=== PATIENT | female | born 1990 | race Caucasian/White ===

== ENCOUNTER 2016-11-13 16:02 | Observation (INO) | payer OTHER ==
[~2016-11-13] VITALS: Ht 162.6 cm; Wt 97.0 kg
[2016-11-13 16:04] VITALS: BP 160/91; PULSE 81; RESP 20; TEMP 98.3; O2SAT 100
[2016-11-13 17:41] LABS: AUTOMATED NEUTROPHIL # 8.9 TH/MM3 (1.8-7.7); BASOPHIL # 0.1 TH/MM3 (0-0.2); BASOPHIL % 0.7 % (0.0-2.0); EOSINOPHIL # 0.3 TH/MM3 (0-0.4); HEMATOCRIT 40.9 % (35.0-46.0); HEMO FLAGS DIFF FINAL; LYMPH % 30.1 % (9.0-44.0); LYMPHOCYTE # 4.3 TH/MM3 (1.0-4.8); MEAN CELL VOLUME 80.6 FL (80.0-100.0); MEAN CORPUSCULAR HEMOGLOBIN 27.2 PG (27.0-34.0); MEAN CORPUSCULAR HGB CONC 33.7 % (32.0-36.0); MONO % 5.6 % (0.0-8.0); NEUT % 61.6 % (16.0-70.0); PLATELET COUNT 367 TH/MM3 (150-450); RED BLOOD COUNT 5.07 MIL/MM3 (4.00-5.30); RED CELL DISTRIBUTION WIDTH 13.5 % (11.6-17.2); WHITE BLOOD COUNT 14.4 TH/MM3 (4.0-11.0)
[2016-11-13 17:49] LABS: BACTERIA, URINE RARE /hpf; BLOOD, URINE NEG (NEG); COMMENT (UR) CULT NOT INDICATED; CULTURE IF INDICATED CULT NOT INDICATED; GLUCOSE,URINE NEG (NEG); KETONE, URINE NEG (NEG); NITRITE,URINE NEG (NEG); PH, URINE 6.5 (5.0-8.5); SQUAMOUS EPITHELIAL CELL URINE <1 /hpf (0-5); URINE COLOR LIGHT-YELLOW (YELLW/STRAW)
[2016-11-13 18:05] LABS: ANION GAP 8 MEQ/L (5-15); AST (GOT) 14 U/L (15-37); BICARBONATE 22.2 MEQ/L (21.0-32.0); BLOOD UREA NITROGEN 11 MG/DL (7-18); CHLORIDE 107 MEQ/L (98-107); GLOMERULAR FILTRATION RATE 98 ML/MIN (>89); POTASSIUM 3.8 MEQ/L (3.5-5.1); SODIUM (NA) 137 MEQ/L (136-145)
[2016-11-13 18:06] LABS: ALT (GPT) 30 U/L (10-53)
[2016-11-13 18:08] LABS: ALKALINE PHOSPHATASE 71 U/L (45-117); TOTAL BILIRUBIN ADULT 0.4 MG/DL (0.2-1.0)
--- NOTE | 2016-11-13 18:10 | PD ---
HPI Chief Complaint: Abdominal Pain Time Seen by Provider: 18:10 Travel History International Travel<30 days: No Contact w/Intl Traveler<30days: No Traveled to known affect area: No History of Present Illness HPI 26 YO F with PMH of asthma presents to the ED for evaluation of 3 day history of right upper quadrant abdominal pain. Gradual onset. Patient states that the pain was initially intermittent and radiating to the right shoulder blade, now constant with no radiation. Rated 9/10. Patient endorses accompanying chills, decreased appetite and nausea. She denies chest pain, palpitations, shortness of breath, changes in bowel habits. Shes never had abdominal surgery. She denies drinking alcohol. PFSH Past Medical History ?: Not LMP: 11/06/16 Social History Tobacco Use: No Allergies-Medications (Allergen,Severity, Reaction): Coded Allergies: Penicillins (Verified Allergy, Intermediate, N/V, 11/13/16) Reported Meds & Prescriptions Reported Meds & Active Scripts Active Reported [ Control] 1 Tab PO HS Montelukast (Montelukast Sodium) 10 Mg Tab 10 Mg PO HS Review of Systems Except as stated in HPI: all other systems reviewed are Neg Physical Exam Narrative GENERAL: Well-nourished, well-developed obese white female in no acute distress. SKIN: Focused skin assessment warm/dry. HEAD: Normocephalic. EYES: No scleral icterus. No injection or drainage. NECK: Supple, trachea midline. No JVD or lymphadenopathy. CARDIOVASCULAR: Regular rate and rhythm without murmurs, gallops, or rubs. RESPIRATORY: Breath sounds clear and equal bilaterally. No accessory muscle use. GASTROINTESTINAL: Abdomen soft, nondistended. Tender to palpation in the right upper quadrant and epigastric region. Simon sign positive. No palpable masses. No suprapubic tenderness. MUSCULOSKELETAL: No cyanosis, or edema. BACK: Nontender without obvious deformity. No CVA tenderness. Data Data Last Documented VS Vital Signs Date Time Temp Pulse Resp B/P (MAP) Pulse Ox O2 Delivery O2 Flow Rate FiO2 11/13/16 18:57 69 20 120/61 (80) 99 Room Air 11/13/16 16:04 98.3 Orders Orders Complete Blood Count With Diff (11/13/16 17:02) Comprehensive Metabolic Panel (11/13/16 17:02) Urinalysis - C+S If Indicated (11/13/16 17:02) Ed Urine Pregnancytest Poc (11/13/16 17:02) Iv Access Insert/Monitor (11/13/16 17:02) Oxygen Administration (11/13/16 17:02) Oximetry (11/13/16 17:02) Lipase (11/13/16 17:02) Sodium Chlor 0.9% 1000 Ml Inj (Ns 1000 M (11/13/16 18:30) Ondansetron Inj (Zofran Inj) (11/13/16 18:30) Us Abdomen Gallbladder (11/13/16 ) Morphine Inj (Morphine Inj) (11/13/16 18:45) Morphine Inj (Morphine Inj) (11/13/16 20:00) Ketorolac Inj (Toradol Inj) (11/13/16 20:00) Biliary Quantitative (Hida) (11/13/16 ) Consult Carlos Nfs (11/13/16 ) Admit Order (Ed Use Only) (11/13/16 21:57) Labs Laboratory Tests Test 11/13/16 17:10 11/13/16 17:20 Urine Color LIGHT-YELLOW Urine Turbidity CLEAR Urine pH 6.5 Urine Specific [place] 1.008 Urine Protein NEG mg/dL Urine Glucose (UA) NEG mg/dL Urine Ketones NEG mg/dL Urine Occult Blood NEG Urine Nitrite NEG Urine Bilirubin NEG Urine Urobilinogen LESS THAN 2.0 MG/DL Urine Leukocyte Esterase TRACE Urine WBC LESS THAN 1 /hpf Urine Squamous Epithelial Cells <1 /hpf Urine Bacteria RARE /hpf Microscopic Urinalysis Comment CULT NOT INDICATED White Blood Count 14.4 TH/MM3 Red Blood Count 5.07 MIL/MM3 Hemoglobin 13.8 GM/DL Hematocrit 40.9 % Mean Corpuscular Volume 80.6 FL Mean Corpuscular Hemoglobin 27.2 PG Mean Corpuscular Hemoglobin Concent 33.7 % Red Cell Distribution Width 13.5 % Platelet Count 367 TH/MM3 Mean Platelet Volume 8.0 FL Neutrophils (%) (Auto) 61.6 % Lymphocytes (%) (Auto) 30.1 % Monocytes (%) (Auto) 5.6 % Eosinophils (%) (Auto) 2.0 % Basophils (%) (Auto) 0.7 % Neutrophils # (Auto) 8.9 TH/MM3 Lymphocytes # (Auto) 4.3 TH/MM3 Monocytes # (Auto) 0.8 TH/MM3 Eosinophils # (Auto) 0.3 TH/MM3 Basophils # (Auto) 0.1 TH/MM3 CBC Comment DIFF FINAL Differential Comment Blood Urea Nitrogen 11 MG/DL Creatinine 0.71 MG/DL Random Glucose 82 MG/DL Total Protein 7.4 GM/DL Albumin 3.6 GM/DL Calcium Level 8.8 MG/DL Alkaline Phosphatase 71 U/L Aspartate Amino Transf (AST/SGOT) 14 U/L Alanine Aminotransferase (ALT/SGPT) 30 U/L Total Bilirubin 0.4 MG/DL Sodium Level 137 MEQ/L Potassium Level 3.8 MEQ/L Chloride Level 107 MEQ/L Carbon Dioxide Level 22.2 MEQ/L Anion Gap 8 MEQ/L Estimat Glomerular Filtration Rate 98 ML/MIN Lipase 181 U/L MDM Medical Decision Making Medical Screen Exam Complete: Yes Emergency Medical Condition: Yes Differential Diagnosis Cholecystitis versus biliary obstruction versus gastritis versus pancreatitis versus colitis versus abdominal pain versus Óscar-Bran Christopher syndrome versus other Narrative Course 26-year-old obese female with complaint of three-day history of right upper quadrant abdominal pain, radiating to the right shoulder, rated 9/10. Accompanied by chills, nausea, decreased appetite. Vitals reviewed. Physical exam reveals an obese white female with marked tenderness in the right upper quadrant. IV was established. Patient was administered 1 L normal saline, 4 mg Zofran, 4 mg morphine IV. CBC is unremarkable. No elevation of the LFTs. No culture indicated of the UA. US right upper quadrant:, Bile duct distended for a patient of this age, unknown etiology. No duct stones. Appearance of the gallbladder is essentially normal. Positive ultrasonic Simon's sign On recheck the patient is still in significant pain. She was administered 30 mg Toradol and 2mg morphine IV. Patient states pain is manageable if she does not move, however, worsened by movement on recheck. I spoke with with Dr. Rendon who will come to the ED to evaluate the patient. After his evaluation Dr. Rendon requested the patient be admitted for observation. She will undergo HIDA scan. Please see his notes for disposition. Lyndsey Main Nov 13, 2016 18:10
[2016-11-13] MEDS ORDERED: SODIUM CHLOR 0.9% 1000 ML INJ 1,000 ML IV ONE (18:30)
[2016-11-13] MEDS ORDERED: ONDANSETRON HCL 4 MG/2 ML VIAL IV PUSH ONE (18:30)
[2016-11-13] MEDS ORDERED: MORPHINE SULFATE 4 MG/ML INJ IV PUSH ONE ×2 (18:45→20:00)
[2016-11-13] MEDS ORDERED: MONT10TA4 PO (18:53)
[2016-11-13] MEDS ORDERED: BIRTH CONTROL PO (18:54)
[2016-11-13 18:57] VITALS: BP_SYST 120; BP_SYST 131; BP_DIAS 61; PULSE 69; RESP 20; O2SAT 99
[2016-11-13] MEDS ORDERED: KETOROLAC TROMETHAMINE 30 MG/ML (IVP) VIAL IV PUSH ONE (20:00)
--- NOTE | 2016-11-13 20:06 | RADRPT ---
EXAM DATE/TIME: 11/13/2016 18:53 [facility] COMPARISON: No previous studies available for comparison. INDICATIONS : Right upper quadrant pain. MEDICAL HISTORY : Right upper quadrant pain. SURGICAL HISTORY : None. ENCOUNTER: Initial ACUITY: 3 days PAIN SCORE: 9/10 LOCATION: Right upper quadrant MEASUREMENTS: LIVER: 21.1 cm length COMMON DUCT: 8 mm RIGHT KIDNEY: 10.8 x 5.2 x 4.8 cm FINDINGS: LIVER: Diffusely echogenic. No intrahepatic biliary distention seen. There is normal flow velocity and direc tion in the main portal vein. COMMON DUCT: No intraluminal mass or stone visualized. GALLBLADDER: No sludge or stones seen. No gallbladder wall thickening or pericholecystic fluid. The patient does s eem to be tender when scanning over the right upper quadrant, however. PANCREAS: The visualized portions are within normal limits. RIGHT KIDNEY: No evidence of hydronephrosis, stone, or mass. CONCLUSION: 1. Common bile duct is distended per patient this age, etiology uncertain. No duct stones are demonst rated. Please correlate clinically and serologically for any evidence of biliary obstruction. 2. Ultrasound appearance of the gallbladder is essentially normal. No objective evidence of acute cho lecystitis but the patient does complain of right upper quadrant pain during scanning over the gallbl adder. 3. Enlarged and fatty liver. Rashad Maravilla MD on November 13, 2016 at 20:02 Board Certified Radiologist. This report was verified electronically.
[2016-11-13] MEDS: SODIUM CHLORIDE 0.9% FLUSH 10 ML FLUSH IV FLUSH SCH (23:00)
[2016-11-13] MEDS ORDERED: oxyCODONE/ACETAMINOPHEN 5 MG/325 MG TAB PO PRN (23:00)
[2016-11-13] MEDS ORDERED: MORPHINE SULFATE 4 MG/ML INJ IV PRN (23:00)
[2016-11-13] MEDS ORDERED: SODIUM CHLORIDE 0.9% FLUSH 10 ML FLUSH IV FLUSH PRN (23:00)
[2016-11-14 00:54] VITALS: BP 128/68; PULSE 75; RESP 20; O2SAT 100
[2016-11-14] MEDS: SODIUM CHLOR 0.9% 1000 ML INJ 1,000 ML IV SCH ×2 (01:03→13:58)
[2016-11-14] MEDS: MORPHINE SULFATE 4 MG/ML INJ IV PRN ×2 (01:04→05:41)
[2016-11-14 05:55] VITALS: BP 117/78; PULSE 74; RESP 18; TEMP 98.8; O2SAT 98
[2016-11-14 09:04] LABS: AUTOMATED NEUTROPHIL # 6.3 TH/MM3 (1.8-7.7); BASOPHIL % 0.2 % (0.0-2.0); EOSINOPHIL # 0.2 TH/MM3 (0-0.4); EOSINOPHIL % 2.4 % (0.0-4.0); HEMATOCRIT 35.8 % (35.0-46.0); HEMO FLAGS DIFF FINAL; LYMPH % 29.5 % (9.0-44.0); LYMPHOCYTE # 3.1 TH/MM3 (1.0-4.8); MEAN CELL VOLUME 80.8 FL (80.0-100.0); MEAN CORPUSCULAR HEMOGLOBIN 27.8 PG (27.0-34.0); MEAN CORPUSCULAR HGB CONC 34.4 % (32.0-36.0); MONO % 6.9 % (0.0-8.0); PLATELET COUNT 289 TH/MM3 (150-450); RED BLOOD COUNT 4.43 MIL/MM3 (4.00-5.30); RED CELL DISTRIBUTION WIDTH 13.5 % (11.6-17.2); WHITE BLOOD COUNT 10.4 TH/MM3 (4.0-11.0)
[2016-11-14 10:22] LABS: ALKALINE PHOSPHATASE 60 U/L (45-117); ALT (GPT) 23 U/L (10-53); ANION GAP 7 MEQ/L (5-15); AST (GOT) 9 U/L (15-37); BICARBONATE 23.9 MEQ/L (21.0-32.0); BLOOD UREA NITROGEN 8 MG/DL (7-18); CHLORIDE 108 MEQ/L (98-107); GLOMERULAR FILTRATION RATE 109 ML/MIN (>89); SODIUM (NA) 139 MEQ/L (136-145); TOTAL BILIRUBIN ADULT 0.4 MG/DL (0.2-1.0)
--- NOTE | 2016-11-14 10:47 | MH ---
cc: TREY WILLIS MD DATE OF ADMISSION: 11/13/2016 CHIEF COMPLAINT Right upper quadrant abdominal pain. HISTORY OF PRESENT ILLNESS The patient is a 26-year-old female with presentation of three days of right upper quadrant abdominal pain. She states the pain started gradually and continued to get worse in intensity. She states the pain is sharp and radiates to her shoulder blade and is constant. It is 9/10. She had some improvement with pain medication to 6/10. She does have decreased intake associated with this and nausea. Denies any vomiting. She states she has a history of mild symptoms in the past that have gone away on their own. She denies any relation to food. PAST MEDICAL HISTORY Asthma. PAST SURGICAL HISTORY The patient has no surgical history. ALLERGIES PENICILLIN. MEDICATIONS See EMR. SOCIAL HISTORY Denies smoking. Occasional ETOH. Denies IVDA. FAMILY HISTORY Dad with diabetes and hypertension. Grandmother with gallbladder disease. Mother with gallbladder disease. REVIEW OF SYSTEMS GENERAL: Denies fever or chills. HEENT: Denies eye pain or ear pain. NECK: Denies swelling or pain. HEART: Denies chest pain or palpitations. RESPIRATORY: Denies cough or wheeze. ABDOMEN: Complains of nausea and abdominal pain. Denies vomiting. MUSCULOSKELETAL: Denies arthralgia or myalgia. BACK: Denies numbness or tingling. PSYCH: Denies change in mood or sensorium. PHYSICAL EXAMINATION GENERAL: Patient in no acute distress. VITAL SIGNS: Temperature 98.3, pulse 69, respirations 20, blood pressure 128/61, pulse ox 99% saturation on room air. HEENT: Pupils equal, round and reactive. Normocephalic, atraumatic. NECK: Supple. Trachea midline. LUNGS: Bilateral expansion. Clear. HEART: S1, S2, regular. ABDOMEN: Soft. Positive tenderness to palpation right upper quadrant. Minimal epigastric pain. Nondistended. EXTREMITIES: Warm and well-perfused. BACK: Nontender. No step-offs. PSYCH: Good insight and judgment. LABORATORY WBC 14.4, hemoglobin 13.8, hematocrit 40.9, platelets 367. Sodium 137, potassium 3.8, BUN 11, creatinine 0.7, glucose 82, AST 14, ALT 30, total bili 0.4, alk phos 71, lipase 181. IMAGING Ultrasound reviewed by myself is showing a distended gallbladder. No evidence of stones. No gallbladder wall thickening or pericholecystic fluid. Common bile duct 8 mm, upper limits of normal. No evidence of common bile duct stones. Fatty liver. ASSESSMENT The patient in a 26-year-old female who presents with acute onset of right upper quadrant abdominal pain, leukocytosis and concern for gallbladder etiology. PLAN After full clinical and radiologic laboratory work-up the patient has the above-named issues including right upper quadrant abdominal pain. The patient's pain is very significant and on laboratory exam she also has leukocytosis giving concern for possible gallbladder etiology; however, gallbladder ultrasound and other labs are relatively within normal limits. At this point will recommend a HIDA scan for further evaluation to rule out acute cholecystitis. Discussed with the patient in detail. The patient states understanding and agrees. MD SMITHA Hilliard/VANDA /10:19 AM /10:33 AM
--- NOTE | 2016-11-14 13:08 | RADRPT ---
EXAM DATE/TIME: 11/14/2016 10:13 [facility] COMPARISON: No previous studies available for comparison. INDICATIONS : Right upper quadrant pain for 3 days. DOSE: 4.0 mCi Tc99m Mebrofenin IV MEDICAL HISTORY : Asthma. SURGICAL HISTORY : None. ENCOUNTER: Initial ACUITY: 3 days PAIN SCALE: 9/10 LOCATION: Right upper quadrant TECHNIQUE: Following the intravenous administration of radiotracer, dynamic sequential images were performed wit h continuous acquisition. FINDINGS: HEPATIC KINETICS: There is prompt uptake of radiotracer in the liver. No focal defects are seen. There is normal rate of washout from the hepatic parenchyma. BILIARY CLEARANCE: Activity is first seen in the extrahepatic biliary system at 20 minutes. There is normal excretion i nto the small bowel. GALLBLADDER: Activity is first seen in the gallbladder at 30 minutes. Common bile duct kinetics are normal and th ere is no evidence of biliary obstruction. BILIARY ENTRIC REFLUX: None observed. CONCLUSION: Negative exam. No scintigraphic findings of acute cholecystitis. Richard Farr MD on November 14, 2016 at 13:04 Board Certified Radiologist. This report was verified electronically.
[2016-11-14 13:28] VITALS: BP 117/67; PULSE 76; RESP 16; TEMP 98; O2SAT 97
[2016-11-14] MEDS: PANTOPRAZOLE SODIUM 40 MG VIAL IV SCH (13:55)
[2016-11-14] MEDS: SODIUM CHLORIDE 0.9% FLUSH 10 ML FLUSH IV FLUSH SCH ×2 (13:56→21:00)
[2016-11-14] MEDS: CIPROFLOXACIN 400 MG PREMIX 200 ML IV SCH (14:00)
[2016-11-14] MEDS: metroNIDAZOLE 500 MG INJ 100 ML IV SCH ×2 (14:01→19:30)
--- NOTE | 2016-11-14 14:23 | PD.CONS ---
HPI History of Present Illness This is a 26 year old who presented to the ER for evaluation of abdominal pain. This is a stabbing pain in her right upper quadrant that began suddenly Monday night. She reports that on Monday, she had a banana for breakfast, did not eat lunch, and then had a seafood platter (combined baked and fried fish). She reports that her pain actually began before she ate dinner, but became worse after eating. She has had this pain in the past, and usually it would subside after a few hours to a day, so she went about her day thinking it would gradually resolve. However, the pain became more severe. Initially, it was constant and radiating to her left shoulder blade and the right side of her neck. However, now it is more intermittent. She denies any nausea or vomiting , fevers, chills. She does occasionally have constipation, but was not having this at the time that her symptoms started. She occasionally has heartburn and reflux, but not often and she does not require any medications for this. She tried some 2 advil and 3 tylenol for the pain, but it didn't work. She then called a nurse hotline, who suggested taking another 2 ibuprofen- which she did but states it did not help with the pain. She denies any black tarry stools or blood in her stools. She denies any history of PUD. (Linda Navarro) PFSH Past Medical History Asthma Allergic rhinitis Benign positional vertigo Low B12 Migraine Vitamin D deficiency Past Surgical History None (Linda Navarro) Coded Allergies: Penicillins (Verified Allergy, Intermediate, N/V, 11/13/16) Medications Allergies Coded Allergies Type Severity Reaction Last Updated Verified Penicillins Allergy Intermediate N/V 11/13/16 Yes Active Scripts Medications Dose Route/Sig Max Daily Dose Days Date Category [ Control] 1 Tab PO HS 11/13/16 Reported Montelukast (Montelukast Sodium) 10 Mg Tab 10 Mg PO HS 11/13/16 Reported Family History Mother had gallbladder issues Paternal aunts/gm with gallbladder issues Social History No tobacco Rare ETOH No illicit drug use (Linda Navarro) Review of Systems Constitutional: DENIES: Fatigue, Fever, Weight loss, Chills Ears, nose, mouth, throat: DENIES: Vertigo Respiratory: DENIES: Cough, Shortness of breath Cardiovascular: DENIES: Chest pain Gastrointestinal: COMPLAINS OF: Abdominal pain, Heartburn, DENIES: Black stools , Bloody stools, Constipation, Diarrhea, Nausea, Vomiting, Difficulty Swallowing , Swelling of Abdomen, Hematemesis Musculoskeletal: COMPLAINS OF: Joint pain Integumentary: DENIES: Abnormal pigmentation Hematologic/lymphatic: DENIES: Bruising Neurologic: COMPLAINS OF: Headache Psychiatric: DENIES: Confusion (NavarroLinda Hilltala CHOWDHURY) GI Exam Vitals I&O Vital Signs Date Time Temp Pulse Resp B/P (MAP) Pulse Ox O2 Delivery O2 Flow Rate FiO2 11/14/16 13:28 98.0 76 16 117/67 (84) 97 11/14/16 05:55 98.8 74 18 117/78 (91) 98 11/14/16 05:47 14 11/14/16 00:54 75 20 128/68 (88) 100 Room Air 11/13/16 18:57 69 20 120/61 (80) 99 Room Air 11/13/16 16:04 98.3 81 20 160/91 (114) 100 I/O 11/13/16 11/13/16 11/13/16 11/14/16 11/14/16 11/14/16 07:00 15:00 23:00 07:00 15:00 23:00 Intake Total 1000 ml Balance 1000 ml Intake IV Total 1000 ml Imaging Last Impressions Hepatobiliary Scan Nuclear Medicine 11/14/16 0000 Signed Impressions: Service Date/Time: Monday, November 14, 2016 10:13 - CONCLUSION: Negative exam. No scintigraphic findings of acute cholecystitis. Richard Farr MD Gall Bladder Ultrasound 11/13/16 0000 Signed Impressions: Service Date/Time: Sunday, November 13, 2016 18:53 - CONCLUSION: 1. Common bile duct is distended per patient this age, etiology uncertain. No duct stones are demonstrated. Please correlate clinically and serologically for any evidence of biliary obstruction. 2. Ultrasound appearance of the gallbladder is essentially normal. No objective evidence of acute cholecystitis but the patient does complain of right upper quadrant pain during scanning over the gallbladder. 3. Enlarged and fatty liver. Rashad Maravilla MD Laboratory Test 11/13/16 17:10 11/13/16 17:20 11/14/16 08:18 Urine Color LIGHT-YELLOW Urine Turbidity CLEAR Urine pH 6.5 Urine Specific [place] 1.008 Urine Protein NEG mg/dL Urine Glucose (UA) NEG mg/dL Urine Ketones NEG mg/dL Urine Occult Blood NEG Urine Nitrite NEG Urine Bilirubin NEG Urine Urobilinogen LESS THAN 2.0 MG/DL Urine Leukocyte Esterase TRACE Urine WBC LESS THAN 1 /hpf Urine Squamous Epithelial Cells <1 /hpf Urine Bacteria RARE /hpf Microscopic Urinalysis Comment CULT NOT INDICATED White Blood Count 14.4 TH/MM3 10.4 TH/MM3 Red Blood Count 5.07 MIL/MM3 4.43 MIL/MM3 Hemoglobin 13.8 GM/DL 12.3 GM/DL Hematocrit 40.9 % 35.8 % Mean Corpuscular Volume 80.6 FL 80.8 FL Mean Corpuscular Hemoglobin 27.2 PG 27.8 PG Mean Corpuscular Hemoglobin Concent 33.7 % 34.4 % Red Cell Distribution Width 13.5 % 13.5 % Platelet Count 367 TH/MM3 289 TH/MM3 Mean Platelet Volume 8.0 FL 8.2 FL Neutrophils (%) (Auto) 61.6 % 61.0 % Lymphocytes (%) (Auto) 30.1 % 29.5 % Monocytes (%) (Auto) 5.6 % 6.9 % Eosinophils (%) (Auto) 2.0 % 2.4 % Basophils (%) (Auto) 0.7 % 0.2 % Neutrophils # (Auto) 8.9 TH/MM3 6.3 TH/MM3 Lymphocytes # (Auto) 4.3 TH/MM3 3.1 TH/MM3 Monocytes # (Auto) 0.8 TH/MM3 0.7 TH/MM3 Eosinophils # (Auto) 0.3 TH/MM3 0.2 TH/MM3 Basophils # (Auto) 0.1 TH/MM3 0.0 TH/MM3 CBC Comment DIFF FINAL DIFF FINAL Differential Comment Blood Urea Nitrogen 11 MG/DL 8 MG/DL Creatinine 0.71 MG/DL 0.65 MG/DL Random Glucose 82 MG/DL 77 MG/DL Total Protein 7.4 GM/DL 6.5 GM/DL Albumin 3.6 GM/DL 2.9 GM/DL Calcium Level 8.8 MG/DL 7.9 MG/DL Alkaline Phosphatase 71 U/L 60 U/L Aspartate Amino Transf (AST/SGOT) 14 U/L 9 U/L Alanine Aminotransferase (ALT/SGPT) 30 U/L 23 U/L Total Bilirubin 0.4 MG/DL 0.4 MG/DL Sodium Level 137 MEQ/L 139 MEQ/L Potassium Level 3.8 MEQ/L 4.0 MEQ/L Chloride Level 107 MEQ/L 108 MEQ/L Carbon Dioxide Level 22.2 MEQ/L 23.9 MEQ/L Anion Gap 8 MEQ/L 7 MEQ/L Estimat Glomerular Filtration Rate 98 ML/MIN 109 ML/MIN Lipase 181 U/L 98 U/L Physical Examination HEENT: Normocephalic; atraumatic; no jaundice CHEST: CTA CARDIAC: RRR ABDOMEN: Soft, nondistended, significant RUQ tenderness on exam; no hepatosplenomegaly; bowel sounds are present in all four quadrants. EXTREMITIES: No clubbing, cyanosis, or edema. SKIN: Normal; no rash; no jaundice. SALES RECRUITER: No focal deficits; alert and oriented times three. (Linda Navarro) Assessment and Plan Plan ASSESSMENT: - RUQ pain x 3 days. She has had in the past, but usually it resolves on its own after a few hours. This episode began Monday and is more severe/constant. She had worsening of symptoms after eating a seafood platter (fried and grilled) Monday. She took 2 advil with 2 tylenol, but did not have any improvement and therefore called an oncall nurse, who recommended taking an additional 2 ibuprofen. She did not have any relief and came to the ER for further evaluation. No n/v. No melena. No hx PUD. No ETOH. GB US (11/13/16)----> Common bile duct is distended per patietn this age, etiology uncertain. No duct stones are demonstrated. Please correlate clinically and serologically for any evidence of biliary obstruction. US appearance of gallbladder is essentially normal. No objective evidence of acute cholecystitis but the patient does complain of RUQ pain while scanning over the gallbladder, enlarged and fatty liver. HIDA Scan ()----> Negative exam. No scintographic findings of acute cholecystitis. Mild leukocytosis on admission, now normalized. LFT, Lipase unremarkable. NPO. Will plan for egd today to r/o PUD. D/W Dr. Rendon. DDx PUD vs. gastritis vs. passed stone vs. other. - Leukocytosis. Improved. Now 10.4, Afebrile. PLAN: - Plan for egd today - Obtain consents - NPO - Protonix 40mg IV daily - Monitor labs - GS following - Further recommendations to follow based on results of above - Pt seen and examined by Dr. Meredith and myself and this note is written on his behalf. (Linda Navarro) Physician Comments Patient Seen and examined Agree with above Continue with current supportive care Monitor labs We will proceed with an EGD to rule out peptic ulcer disease Most likely cause of her pain is musculoskeletal because it is positional and its localized with limited radiation but does not cross the midline Consider back x-rays to further evaluate Consider local injection as a diagnostic and therapeutic modality (Reggie Meredith MD) Linda Navarro Nov 14, 2016 14:23 Reggie Meredith MD Nov 14, 2016 16:55
[2016-11-14] MEDS ORDERED: PROPOFOL 200 MG/20 ML AMP IV ONE (16:20)
[2016-11-14] MEDS ORDERED: DO NOT ADM ANY ANTICOAGULANT DRUGS PRN (16:20)
[2016-11-14] MEDS ORDERED: *morphine SULFATE 8 MG/ML PERIprocedure ONLY ONE (16:30)
--- NOTE | 2016-11-14 17:00 | PD.PROCEDR ---
GI Procedure REFERRING PHYSICIAN Dr. Rendon PROCEDURE PERFORMED EGD with biopsy INDICATION FOR PROCEDURE Abdominal pain PROCEDURE: The procedure, risks and benefits were discussed with Ms. Rios and informed consent was obtained. Anesthesia sedated her with Diprivan. She was placed in the left lateral decubitus position. EGD: The Pentax videoscope was introduced through the oropharynx and advanced to the second portion of the duodenum under direct visualization. Retroflexion was performed in the stomach. FINDINGS: Esophagus this was normal Stomach there was patchy erythema in the antrum but no ulcerations or erosions biopsies were taken the rest of the stomach otherwise unremarkable The duodenum this was normal ESTIMATED BLOOD LOSS: None SPECIMENS REMOVED: Antral COMPLICATIONS: None IMPRESSION: Mild gastritis PLAN: Await biopsy This finding does not explain the pain the patient is having The pain is most likely musculoskeletal Consider back x-rays as a potential cause and consider a local injection as a means to differentiate or treat Reggie Meredith MD Nov 14, 2016 17:00
[2016-11-14 17:11] VITALS: BP 117/69; PULSE 72; RESP 16; TEMP 98; O2SAT 97
[2016-11-14 21:14] VITALS: BP 111/64; PULSE 82; RESP 18; TEMP 98; O2SAT 98
[2016-11-14 23:20] VITALS: BP 105/58; PULSE 77; RESP 18; TEMP 98.6; O2SAT 97
[2016-11-15 04:26] VITALS: BP 111/65; PULSE 78; RESP 18; TEMP 98.7; O2SAT 98
[2016-11-15] MEDS: metroNIDAZOLE 500 MG INJ 100 ML IV SCH ×3 (04:30→19:45)
[2016-11-15] MEDS: CIPROFLOXACIN 400 MG PREMIX 200 ML IV SCH ×2 (04:30→12:10)
[2016-11-15] MEDS: SODIUM CHLOR 0.9% 1000 ML INJ 1,000 ML IV SCH ×4 (04:31→22:54)
[2016-11-15 08:09] VITALS: BP 103/59; PULSE 69; RESP 16; TEMP 98; O2SAT 96
[2016-11-15] MEDS: SODIUM CHLORIDE 0.9% FLUSH 10 ML FLUSH IV FLUSH SCH ×2 (09:45→21:00)
[2016-11-15] MEDS: PANTOPRAZOLE SODIUM 40 MG VIAL IV SCH (09:45)
[2016-11-15] MEDS ORDERED: GLYCOPYRROLATE 0.2 MG/ML VIAL IV ONE (12:00)
[2016-11-15] MEDS ORDERED: SUCCINYLCHOLINE CHLORIDE 100 MG/5 ML SYRINGE IV PUSH ONE (12:00)
[2016-11-15] MEDS ORDERED: NEOSTIGMINE 3 MG/3 ML SYR IV ONE (12:00)
[2016-11-15] MEDS ORDERED: ESMOLOL HCL 100 MG/10 ML VIAL IV ONE (12:00)
[2016-11-15] MEDS ORDERED: PROPOFOL 200 MG/20 ML AMP IV ONE (12:00)
[2016-11-15] MEDS ORDERED: DEXAMETHASONE SOD PHOS 4 MG/ML VIAL IV ONE (12:00)
[2016-11-15] MEDS ORDERED: ONDANSETRON HCL 4 MG/2 ML VIAL IV PUSH ONE (12:00)
[2016-11-15] MEDS ORDERED: LIDOCAINE HCL 1% PF 5 ML AMPULE OTHER ONE (12:00)
[2016-11-15] MEDS ORDERED: ROCURONIUM INJ 50 MG/5 ML VIAL IV ONE (12:00)
[2016-11-15 13:14] VITALS: BP 112/63; PULSE 92; RESP 16; TEMP 98.1; O2SAT 97
--- NOTE | 2016-11-15 15:16 | HHI.GIFU ---
Subjective Remarks Late entry: seen at 11am. Pt was resting in bed. States she feels better, but still having RUQ pain. No n/v. Scheduled for lap. cholecystectomy this afternoon. (Linda Navarro) Objective Vitals I&O Vital Signs Date Time Temp Pulse Resp B/P (MAP) Pulse Ox O2 Delivery O2 Flow Rate FiO2 11/15/16 13:14 98.1 92 16 112/63 (79) 97 11/15/16 08:09 98.0 69 16 103/59 (74) 96 11/15/16 06:33 18 11/15/16 04:26 98.7 78 18 111/65 (80) 98 11/14/16 23:20 98.6 77 18 105/58 (74) 97 11/14/16 21:14 98.0 82 18 111/64 (80) 98 11/14/16 17:11 98.0 72 16 117/69 (85) 97 11/14/16 16:45 73 16 118/73 (88) 95 Room Air 11/14/16 16:30 89 16 120/76 (91) 95 Room Air 11/14/16 16:24 98.4 88 16 128/78 (95) 96 Room Air I/O 11/14/16 11/14/16 11/14/16 11/15/16 11/15/16 11/15/16 07:00 15:00 23:00 07:00 15:00 23:00 Intake Total 1200 ml Output Total 0 ml Balance 1200 ml Intake Oral 200 ml IV Total 800 ml Other 200 ml Output Stool Total 0 ml # Voids 5 Imaging Last Impressions Hepatobiliary Scan Nuclear Medicine 11/14/16 0000 Signed Impressions: Service Date/Time: Monday, November 14, 2016 10:13 - CONCLUSION: Negative exam. No scintigraphic findings of acute cholecystitis. Richard Farr MD Gall Bladder Ultrasound 11/13/16 0000 Signed Impressions: Service Date/Time: Sunday, November 13, 2016 18:53 - CONCLUSION: 1. Common bile duct is distended per patient this age, etiology uncertain. No duct stones are demonstrated. Please correlate clinically and serologically for any evidence of biliary obstruction. 2. Ultrasound appearance of the gallbladder is essentially normal. No objective evidence of acute cholecystitis but the patient does complain of right upper quadrant pain during scanning over the gallbladder. 3. Enlarged and fatty liver. Rashad Maravilla MD Physical Exam HEENT: Normocephalic; atraumatic; no jaundice. CHEST: CTA CARDIAC: RRR ABDOMEN: Soft, nondistended, RUQ tenderness; no hepatosplenomegaly; bowel sounds are present in all four quadrants. EXTREMITIES: No clubbing, cyanosis, or edema. SKIN: Normal; no rash; no jaundice. WOODEN FENCE ERECTOR: No focal deficits; alert and oriented times three. (Linda Navarro BULK CLERK) Assessment and Plan Plan ASSESSMENT: - RUQ pain x 3 days. She has had in the past, but usually it resolves on its own after a few hours. This episode began Monday and is more severe/constant. She had worsening of symptoms after eating a seafood platter (fried and grilled) Monday. She took 2 advil with 2 tylenol, but did not have any improvement and therefore called an oncall nurse, who recommended taking an additional 2 ibuprofen. She did not have any relief and came to the ER for further evaluation. No n/v. No melena. No hx PUD. No ETOH. GB US (11/13/16)----> Common bile duct is distended per patietn this age, etiology uncertain. No duct stones are demonstrated. Please correlate clinically and serologically for any evidence of biliary obstruction. US appearance of gallbladder is essentially normal. No objective evidence of acute cholecystitis but the patient does complain of RUQ pain while scanning over the gallbladder, enlarged and fatty liver. HIDA Scan ()----> Negative exam. No scintographic findings of acute cholecystitis. Mild leukocytosis on admission, now normalized. LFT, Lipase unremarkable. S/P EGD (11/14/16)--> Mild gastritis. Pathology pending. This finding does not explain the pain the patient is having and is most likely musculoskeletal. Consider back x-rays as a potential cause and consider a local injection as a means to differentiate or treat - Leukocytosis. Improved. Now 10.4, Afebrile. PLAN: - NPO for surgery - Await pathology - PPI - GS following, scheduled for lap. cholecystectomy today - Pt seen and examined by Dr. Meredith and myself and this note is written on his behalf. (Linda Navarro) Physician Comments Patient seen and examined Agree with above Continue with current supportive care Not Much to add from a GI perspective we will sign off (Reggie Meredith MD) Linda Navarro Nov 15, 2016 15:16 Reggie Meredith MD Nov 15, 2016 20:51
--- NOTE | 2016-11-15 16:53 | HHI.PR ---
Immediate Post Op Note Procedure Date: Nov 15, 2016 Pre Op Diagnosis: right upper quadrant pain Post Op Diagnosis: same, omental adhesions ruq, inflammatory process Surgeon: Gasper Rendon MD Floor Installation Mechanic(s): see or sheet Procedure: lap ventura Findings: distended gallbladder, inflamation ruq peritoneum with omentum adherent, no obvious mass Complications: none Specimen(s) removed: gallbladder, omental biopsy Anesthesia: General Drains: None Patient to: PACU Patient Condition: Good Gasper Rendon MD Nov 15, 2016 16:53
[2016-11-15] MEDS ORDERED: MIDAZOLAM HCL 2 MG/2 ML VIAL ONE (17:03)
[2016-11-15] MEDS ORDERED: FAMOTIDINE 20 MG/2 ML VIAL ONE (17:03)
[2016-11-15] MEDS ORDERED: BUPIVACAINE/EPINEPHRINE 0.25% PF 10 ML VIAL INFIL ONE (17:33)
[2016-11-15] MEDS ORDERED: ACETAMINOPHEN 1000 MG/100 ML 100 ML IV ONE (18:10)
[2016-11-15] MEDS ORDERED: DO NOT ADM ANY ANTICOAGULANT DRUGS PRN (18:46)
[2016-11-15] MEDS ORDERED: *MEPERIDINE 25 MG INJ VIAL PERIprocedural Use ONLY ONE (18:57)
[2016-11-15] MEDS ORDERED: *morphine SULFATE 8 MG/ML PERIprocedure ONLY ONE (19:07)
[2016-11-15 20:46] VITALS: BP 133/83; PULSE 63; RESP 18; TEMP 97.8; O2SAT 99
[2016-11-15 23:00] VITALS: BP 128/82; PULSE 55; RESP 18; TEMP 98.5; O2SAT 98
[2016-11-16] MEDS: CIPROFLOXACIN 400 MG PREMIX 200 ML IV SCH ×2 (00:41→14:22)
[2016-11-16] MEDS: MORPHINE SULFATE 4 MG/ML INJ IV PRN ×2 (00:41→06:14)
[2016-11-16] MEDS: metroNIDAZOLE 500 MG INJ 100 ML IV SCH ×2 (03:24→11:29)
[2016-11-16 03:52] VITALS: BP 137/75; PULSE 53; RESP 18; TEMP 98.3; O2SAT 95
[2016-11-16 06:10] VITALS: BP 154/76; PULSE 60
[2016-11-16] MEDS: SODIUM CHLOR 0.9% 1000 ML INJ 1,000 ML IV SCH (06:14)
[2016-11-16 07:52] VITALS: BP 117/71; PULSE 51; RESP 16; TEMP 98.1; O2SAT 97
--- NOTE | 2016-11-16 09:03 | HHI.PR ---
Subjective Subjective Notes incisional pain, ruq pain, mild sob today Objective Vitals/I&O Vital Signs Date Time Temp Pulse Resp B/P (MAP) Pulse Ox O2 Delivery O2 Flow Rate FiO2 11/16/16 07:52 98.1 51 16 117/71 (86) 97 11/15/16 19:45 Nasal Cannula 2 Lungs: Clear Abdomen: Other (incisions scant blood, soft, incisional tenderness) A/P Assessment and Plan POD 1 Lap ventura, bx omental adhesion ruq PLAN Reg diet pain control wean ivf f/u pathology d/c planning today Gasper Rendon MD Nov 16, 2016 09:03
[2016-11-16] MEDS ORDERED: oxyCODONE/ACETAMINOPHEN 7.5 MG/325 MG TAB PO PRN (09:15)
--- NOTE | 2016-11-16 09:26 | RADRPT ---
EXAM DATE/TIME: 11/16/2016 08:50 [facility] COMPARISON: No previous studies available for comparison. INDICATIONS : Short of breath, right flank pain and chest pain. MEDICAL HISTORY : None. SURGICAL HISTORY : None. ENCOUNTER: Initial ACUITY: 3 days PAIN SCORE: 10/10 LOCATION: Bilateral chest FINDINGS: Underinflated AP view the chest demonstrates a normal-sized cardiac silhouette. There is atelectasis at the lung bases. No effusion, consolidation, or pneumothorax is visualized. Bones and soft tissues demonstrate no acute finding. CONCLUSION: Underinflation with atelectasis at the lung bases. Otherwise, no acute finding is identified. Rashad Fall MD on November 16, 2016 at 9:23 Board Certified Radiologist. This report was verified electronically.
[2016-11-16] MEDS: KETOROLAC TROMETHAMINE 60 MG/2 ML (IM) VIAL IM SCH ×2 (09:35→14:22)
[2016-11-16] MEDS: PANTOPRAZOLE SODIUM 40 MG VIAL IV SCH (09:36)
[2016-11-16] MEDS: SODIUM CHLORIDE 0.9% FLUSH 10 ML FLUSH IV FLUSH SCH (09:36)
[2016-11-16 12:20] VITALS: BP 101/55; PULSE 65; RESP 16; TEMP 98.6; O2SAT 98
[2016-11-16 14:20] LABS: AUTOMATED NEUTROPHIL # 7.7 TH/MM3 (1.8-7.7); BASOPHIL % 0.4 % (0.0-2.0); EOSINOPHIL # 0.1 TH/MM3 (0-0.4); EOSINOPHIL % 0.6 % (0.0-4.0); HEMATOCRIT 37.4 % (35.0-46.0); HEMO FLAGS DIFF FINAL; LYMPH % 27.1 % (9.0-44.0); LYMPHOCYTE # 3.2 TH/MM3 (1.0-4.8); MEAN CORPUSCULAR HEMOGLOBIN 27.2 PG (27.0-34.0); MEAN CORPUSCULAR HGB CONC 33.2 % (32.0-36.0); MONO % 7.2 % (0.0-8.0); NEUT % 64.7 % (16.0-70.0); PLATELET COUNT 318 TH/MM3 (150-450); RED BLOOD COUNT 4.56 MIL/MM3 (4.00-5.30); RED CELL DISTRIBUTION WIDTH 13.3 % (11.6-17.2); WHITE BLOOD COUNT 11.9 TH/MM3 (4.0-11.0)
[2016-11-16 14:38] LABS: ALKALINE PHOSPHATASE 58 U/L (45-117); ALT (GPT) 37 U/L (10-53); ANION GAP 8 MEQ/L (5-15); AST (GOT) 27 U/L (15-37); BICARBONATE 23.3 MEQ/L (21.0-32.0); BLOOD UREA NITROGEN 5 MG/DL (7-18); CHLORIDE 108 MEQ/L (98-107); GLOMERULAR FILTRATION RATE 95 ML/MIN (>89); POTASSIUM 3.5 MEQ/L (3.5-5.1); SODIUM (NA) 139 MEQ/L (136-145); TOTAL BILIRUBIN ADULT 0.4 MG/DL (0.2-1.0)
--- NOTE | 2016-11-17 07:35 | MP ---
cc: TREY RENDON MD DATE OF SURGERY 11/15/2016 PREOPERATIVE DIAGNOSIS Right upper quadrant abdominal pain. POSTOPERATIVE DIAGNOSES Right upper quadrant abdominal pain. Inflammatory process, omental adhesions right upper quadrant. SURGEON Dr. Trey Rendon SURGEON'S ASSISTANT See OR sheet. PROCEDURE PERFORMED 1. Laparoscopic cholecystectomy. 2. Laparoscopic biopsy of omentum. ANESTHESIA GETA. IV FLUIDS See anesthesia sheet. ESTIMATED BLOOD LOSS 5 cc. DRAINS None. COMPLICATIONS None. WOUND CLASSIFICATION Clean, contaminated. FINDINGS A distended gallbladder, inflammatory process right upper quadrant, peritoneum and omentum adherent to this. No obvious mass was noted. SPECIMENS 1. Gallbladder. 2. Omental biopsy. INDICATION The patient is a 26-year-old female who presented with acute onset right upper quadrant abdominal pain.. She had a leukocytosis of 14,000 and further workup with gallbladder ultrasound without significant abnormality. The patient underwent consultation with GI and upper endoscopy with findings of mild gastritis but no findings to describe the patient's pain. Decision was made for operative exploration and possible cholecystectomy. DETAILS OF PROCEDURE The patient was taken to the operating suite, placed in supine position. She was prepped and draped in the usual sterile fashion after induction of general endotracheal anesthesia. Brief time-out was done stating correct patient, procedure and surgical site. We were all in agreement with this. Attention was first directed to the umbilicus. Stab-jessica incision made with 11-blade, prior local anesthetic injected. Abdomen was insufflated to 50 mm pneumoperitoneum after confirmation of saline drop test. The 5-mm scope was obtained and entered under direct visualization without evidence of injury. The abdomen was visualized and inspected. There was noted to be somewhat of a distended gallbladder. There was noted to be some marked inflammatory process with a tongue of omentum intermediately adhered to the right upper quadrant. Two other trocars were placed including a 5 mm right subcostal in midclavicular line and anterior axillary line. Omental adhesion was dissected and there was what appeared to be somewhat of an infection process. The omentum was cauterized and transected. The third costal epigastric port was placed at 12 mm. This facilitated removal of omental biopsy specimen. Attention then directed to the gallbladder. The patient was placed in reverse Trendelenburg, airplaned to the left. Gallbladder was noted be somewhat hard and distended. The fundus was grasped and retracted cephalad. The cystic duct and cystic artery were dissected with [place] electrocautery. Two clips were placed proximal on the cystic duct and one distal and then two clips placed proximal on the cystic artery and then one distal. Endoshears were used to transect the cystic duct and cystic artery. The gallbladder was removed from the gallbladder fossa with electro Bovie cautery. The gallbladder was placed in EndoCatch bag and removed from the epigastric port. Hemostasis was obtained. On inspection also of the peritoneum right upper quadrant there is some prominence of rib markings without evidence of overt gross abnormality. Small Surgicel placed. Suction irrigation used to the right upper quadrant. The rest the abdomen was explored without evidence of significant abnormality. Minimal dependent pelvic fluid likely physiologic fluid. The abdomen was then desufflated. The trocars were removed. 0 Vicryl was used to close the fascia of the epigastric port, 4-0 Monocryl sutures used for subcuticular sutures at all skin edges and sterile dressings including Steri-Strips and Mastisol was placed. The patient tolerated the procedure well. There is no intraoperative complication. The patient was extubated and taken to the PACU. All lap and instrument counts were correct at the end of the procedure. MD SMITHA Hilliard/VAUGHN /3:36 PM /6:48 AM
[2016-11-17] MEDS ORDERED: VITA1000 PO (13:34)
[2016-11-17] MEDS ORDERED: VITA100021 SL (13:34)
[2016-11-17] MEDS ORDERED: FLUO10TA PO (13:34)
[2016-11-17] MEDS ORDERED: PERC7.5T13 PO (13:34)
[2016-11-17] MEDS ORDERED: BUPR100T4 PO (13:34)
[2016-11-17] MEDS ORDERED: ORSYTAB PO (13:34)
[2016-11-17] MEDS ORDERED: CETI10 PO (13:34)
[2016-11-17] MEDS ORDERED: APIX5TAB PO (16:28)
--- NOTE | 2016-12-14 13:40 | HHI.DS ---
Discharge Summary Admission Date Nov 13, 2016 at 21:59 Discharge Date: Nov 16, 2016 Admitting Diagnosis right upper quadrant pain, leukocytosis Brief History POD 1 Lap ventura, bx omental adhesion RUQ PE at Discharge Alert and awake Cardio: RRR Resp: CTAB Abd: lap sites c/d/i; post op tenderness Hospital Course This is a 26 year old female POD 1 Lap ventura, bx omental adhesion ruq. The patient was able to tolerate a regular diet. The patient's pain was controlled using oral pain medications. She will DC and follow up in the office. Pt Condition on Discharge: Good Discharge Disposition: Discharge Home Discharge Instructions DIET: Follow Instructions for: As Tolerated, No Restrictions Activities you can perform: See Additionl Instruction Other Activity Instructions: no heavy lifting >15 lbs for 3 weeks, ok to shower tomorrow Carissa Albert Dec 14, 2016 13:40
== END 2016-11-16 16:38 | disposition home or self-care (01) ==
LOC: NEPE 16:02 → NEDA 21:59 → NEPGCP 11-14 01:35
PROVIDERS: ADMIT Surgery; ATTEND Surgery
DX: K81.1 Chronic cholecystitis (principal); K65.4 Sclerosing mesenteritis; K66.0 Peritoneal adhesions (postprocedural) (postinfection); K29.70 Gastritis, unspecified, without bleeding; K21.9 Gastro-esophageal reflux disease without esophagitis; D72.829 Elevated white blood cell count, unspecified; K76.0 Fatty (change of) liver, not elsewhere classified; J45.909 Unspecified asthma, uncomplicated; E66.9 Obesity, unspecified; Z68.36 Body mass index [BMI] 36.0-36.9, adult
CPT/HCPCS: 00740; 00790; 43239; 47562; 49321; 71010; 76705; 78226; 80053; 81001; 83690; 84703; 85025; 88304; 88305; 88312; 96361; 96365; 96366; 96368; 96375; 96376; 99285; A9537; C9113; G0378; J0131; J0330; J0744; J1100; J1885; J2175; J2250; J2270; J2405; J2710; J3010; J7030

== ENCOUNTER 2016-11-17 11:24 | Emergency (ER) | payer OTHER ==
[~2016-11-17] VITALS: Ht 162.6 cm; Wt 96.5 kg
[~2016-11-17 11:24] MED LIST: BIRTH CONTROL PO; MONT10TA4 PO
[2016-11-17] MEDS ORDERED: IOHEXOL 350 MG/ML 10 ML VIAL (for RAD DIAG) IVCONTRAST ONE (11:25)
[2016-11-17 11:26] VITALS: BP 132/65; PULSE 91; RESP 16; TEMP 98.5; O2SAT 94
--- NOTE | 2016-11-17 11:31 | PD ---
Physical Exam Date Seen by Provider: Nov 17, 2016 Time Seen by Provider: 11:29 Narrative 26-year-old female presents to emergency department with history of gallbladder removal by Dr. Rendon 2 days ago. Patient presents now with pain, swelling, erythema around the IV site on the right arm. Patient is somewhat dizzy and complaining of shortness of breath. Patient has been placing warm compresses and elevation, but pain is worse. Patient did call Dr. Rendon's office. Pain in her arm is worse to her surgical site currently. Pain is 5-6 out of 10. Patient is on pain medication status post surgery. She is allergic to penicillin. Vital signs are stable. Patient is awaiting med bed placement. Data Data Last Documented VS Vital Signs Date Time Temp Pulse Resp B/P (MAP) Pulse Ox O2 Delivery O2 Flow Rate FiO2 11/17/16 11:26 98.5 91 16 132/65 (87) 94 MDM Medical Record Reviewed: Yes Supervised Visit with JOSE: Yes Condition: Stable Frank Pedersen Nov 17, 2016 11:31
--- NOTE | 2016-11-17 12:58 | PD ---
HPI Chief Complaint: Skin Problem Time Seen by Provider: 12:53 Travel History International Travel<30 days: No Contact w/Intl Traveler<30days: No Traveled to known affect area: No History of Present Illness HPI Patient is a 26-year-old female presenting to emergency evaluation of right arm pain, shortness of breath. Patient had laparoscopic cholecystectomy with Dr. Rendon and was discharged from the hospital yesterday. Since that time she's felt short of breath, it's worse with exertion. She also states that she has pain in her right antecubital space secondary to an IV infiltrating. Patient is concerned for a DVT. Patient is currently on oral contraceptive pills. Patient has been taking her pain medication consistently every 6 hours, she has been fairly sedentary per her 's report. He denies any chest pain, fever , chills, nausea, vomiting. She appears drowsy. PFSH Past Medical History Asthma: Yes Immunizations Current: Yes ?: Not LMP: 11/03/16 : 0 Para: 0 Miscarriage: 0 : 0 Past Surgical History Cholecystectomy: Yes Social History Alcohol Use: Yes (occ ) Tobacco Use: No Substance Use: No Allergies-Medications (Allergen,Severity, Reaction): Coded Allergies: Penicillins (Verified Allergy, Intermediate, N/V, 11/17/16) Reported Meds & Prescriptions Reported Meds & Active Scripts Active Reported Percocet (Oxycodone-Acetaminophen) 7.5-325 mg Tab 1 Tab PO Q4H PRN Orsythia (Levonorgestrel-Ethinyl Estradiol) 0.1-20 mg-mcg Tab 1 Tab PO DAILY Bupropion HCl 100 Mg Tab 150 Mg PO TID Fluoxetine (Fluoxetine HCl) 10 Mg Tab 10 Mg PO DAILY Cetirizine (Cetirizine HCl) 10 Mg Tab 10 Mg PO DAILY Vitamin B-12 (Cyanocobalamin) 1,000 Mcg Subl 1,000 Mcg SL DAILY Vitamin D-1000 (Cholecalciferol) 1,000 Unit Tab 1,000 Units PO DAILY Montelukast (Montelukast Sodium) 10 Mg Tab 10 Mg PO HS Review of Systems Except as stated in HPI: all other systems reviewed are Neg Respiratory: Positive: Shortness of Breath Gastrointestinal: Positive: Constipation Musculoskeletal: Positive: Myalgias, Pain Skin: Positive Change in Pigmentation Physical Exam Narrative GENERAL: Overweight, well-developed, alert female. Resting comfortably in no acute distress. SKIN: Warm and dry. Right AC with mild erythema, no warmth or induration noted. HEAD: Atraumatic. Normocephalic. EYES: Pupils equal and round. No scleral icterus. No injection or drainage. ENT: No nasal bleeding or discharge. Mucous membranes pink and moist. NECK: Trachea midline. No JVD. CARDIOVASCULAR: Regular rate and rhythm. RESPIRATORY: No accessory muscle use. Clear to auscultation. Breath sounds equal bilaterally. GASTROINTESTINAL: Abdomen soft, non-tender, nondistended. Hepatic and splenic margins not palpable. Positive bowel sounds MUSCULOSKELETAL: Extremities without clubbing, cyanosis, or edema. No obvious deformities. NEUROLOGICAL: Awake and alert. No obvious cranial nerve deficits. Motor grossly within normal limits. Five out of 5 muscle strength in the arms and legs. Normal speech. PSYCHIATRIC: Appropriate mood and affect; insight and judgment normal. Data Data Last Documented VS Vital Signs Date Time Temp Pulse Resp B/P (MAP) Pulse Ox O2 Delivery O2 Flow Rate FiO2 11/17/16 11:26 98.5 91 16 132/65 (87) 94 Orders Orders Us Arm Venous Doppler (11/17/16 ) D-Dimer (11/17/16 12:52) Act Partial Throm Time (Ptt) (11/17/16 12:52) Prothrombin Time / Inr (Pt) (11/17/16 12:52) Basic Metabolic Panel (Bmp) (11/17/16 12:52) Complete Blood Count With Diff (11/17/16 12:52) Iv Access Insert/Monitor (11/17/16 12:52) Ecg Monitoring (11/17/16 12:52) Oximetry (11/17/16 12:52) Chest, Pa & Lat (11/17/16 ) Ct Pulmonary Angiogram (11/17/16 ) Ed Urine Pregnancytest Poc (11/17/16 14:07) Iohexol 350 Inj (Omnipaque 350 Inj) (11/17/16 11:25) Apixaban (Eliquis) (11/17/16 16:15) Resp Incentive Spirometry (11/17/16 ) Labs Laboratory Tests Test 11/17/16 13:00 White Blood Count 12.9 TH/MM3 Red Blood Count 4.85 MIL/MM3 Hemoglobin 13.2 GM/DL Hematocrit 39.3 % Mean Corpuscular Volume 81.0 FL Mean Corpuscular Hemoglobin 27.1 PG Mean Corpuscular Hemoglobin Concent 33.5 % Red Cell Distribution Width 13.8 % Platelet Count 320 TH/MM3 Mean Platelet Volume 8.1 FL Neutrophils (%) (Auto) 69.7 % Lymphocytes (%) (Auto) 20.3 % Monocytes (%) (Auto) 8.1 % Eosinophils (%) (Auto) 1.3 % Basophils (%) (Auto) 0.6 % Neutrophils # (Auto) 9.0 TH/MM3 Lymphocytes # (Auto) 2.6 TH/MM3 Monocytes # (Auto) 1.0 TH/MM3 Eosinophils # (Auto) 0.2 TH/MM3 Basophils # (Auto) 0.1 TH/MM3 CBC Comment DIFF FINAL Differential Comment Prothrombin Time 10.1 SEC Prothromb Time International Ratio 0.9 RATIO Activated Partial Thromboplast Time 24.3 SEC D-Dimer Quantitative (PE/DVT) 2.46 MG/L FEU Blood Urea Nitrogen 7 MG/DL Creatinine 0.80 MG/DL Random Glucose 95 MG/DL Calcium Level 8.6 MG/DL Sodium Level 138 MEQ/L Potassium Level 3.9 MEQ/L Chloride Level 106 MEQ/L Carbon Dioxide Level 24.5 MEQ/L Anion Gap 8 MEQ/L Estimat Glomerular Filtration Rate 85 ML/MIN MDM Medical Decision Making Medical Screen Exam Complete: Yes Emergency Medical Condition: Yes Medical Record Reviewed: Yes Interpretation(s) Vital Signs Date Time Temp Pulse Resp B/P (MAP) Pulse Ox O2 Delivery O2 Flow Rate FiO2 11/17/16 11:26 98.5 91 16 132/65 (66) 94 Differential Diagnosis DVT versus pulmonary embolism versus narcotic side effect versus other Narrative Course Patient is a 26-year-old female presenting to the emergency room for evaluation of pain and redness to her right antecubital space as well as shortness of breath. Patient had laparoscopic cholecystectomy and has been taking narcotic pain medication [id number] since that time. She has no complaints related to the surgery/incision site. Shortness of breath could be attributed to atelectasis versus narcotic side effect versus pulmonary embolism. D-dimer is ordered. Ultrasound of the right arm ordered and pending. D-dimer is elevated at 2.46 US of the right upper extremity is positive for occlusive and nonocclusive DVT in RUE. WBC 12.2 CXR read by radiologist shows subsegmental basilar airspace disease, may represent atelectasis and crowding of the bronchovascular structures although small pneumonic infiltrate cannot be excluded, Due to elevated D-Dimer, abn cxr, and positive US and complaint of SOB, CTA ordered and pending. Pulmonary angiogram is negative for pulmonary embolism. He has multiple right arm occlusive and nonocclusive DVTs. Pt will be given first dose of Eliquis now as well as lovenox SQ which was recommended by my attending physician. Discussed results and treatment plan with Dr. Olivares and patient and her spouse. Pt was advised to follow-up with her primary doctor in 1-2 days. She was encouraged to return to emergency department for any new or worsening symptoms. Patient verbalized understanding of instructions as well as medication administration. Patient is stable for discharge. Diagnosis Primary Impression: DVT (deep venous thrombosis) Qualified Codes: I82.621 - Acute embolism and thrombosis of deep veins of right upper extremity Referrals: Gasper Rendon MD as scheduled Primary Care Physician 1 day Patient Instructions: Apixaban (By mouth), Deep Venous Thrombosis (ED), General Instructions Additional Instructions: Follow-up with her primary doctor Take medications as directed twice daily do not skip doses. Use incentive spirometer as shown Change positions frequently, avoid prolonged bed rest Return to emergency department for any new or worsening symptoms Med/Other Pt SpecificInfo: Prescription(s) given Scripts Apixaban (Eliquis) 5 Mg Tab 10 MG PO BID for Blood Clot Prevention, #14 TAB 0 Refills Prov: Nahomy Villalba 11/17/16 Apixaban (Eliquis) 5 Mg Tab 5 MG PO BID for Blood Clot Prevention, #60 TAB 0 Refills Prov: Nahomy Villalba 11/17/16 Disposition: 01 DISCHARGE HOME Condition: Stable Nahomy Villalba Nov 17, 2016 12:58
[2016-11-17 13:18] LABS: BASOPHIL # 0.1 TH/MM3 (0-0.2); BASOPHIL % 0.6 % (0.0-2.0); EOSINOPHIL # 0.2 TH/MM3 (0-0.4); EOSINOPHIL % 1.3 % (0.0-4.0); HEMATOCRIT 39.3 % (35.0-46.0); HEMO FLAGS DIFF FINAL; LYMPH % 20.3 % (9.0-44.0); LYMPHOCYTE # 2.6 TH/MM3 (1.0-4.8); MEAN CORPUSCULAR HEMOGLOBIN 27.1 PG (27.0-34.0); MEAN CORPUSCULAR HGB CONC 33.5 % (32.0-36.0); MONO % 8.1 % (0.0-8.0); NEUT % 69.7 % (16.0-70.0); PLATELET COUNT 320 TH/MM3 (150-450); RED BLOOD COUNT 4.85 MIL/MM3 (4.00-5.30); RED CELL DISTRIBUTION WIDTH 13.8 % (11.6-17.2); WHITE BLOOD COUNT 12.9 TH/MM3 (4.0-11.0)
[2016-11-17 13:29] LABS: APTT (PATIENT) 24.3 SEC (24.3-30.1); INTERNATIONAL NORMALIZED RATIO 0.9 RATIO; PROTHROMBIN TIME - PATIENT 10.1 SEC (9.8-11.6)
[2016-11-17] MEDS ORDERED: FLUO10TA PO (13:34)
[2016-11-17] MEDS ORDERED: VITA100021 SL (13:34)
[2016-11-17] MEDS ORDERED: ORSYTAB PO (13:34)
[2016-11-17] MEDS ORDERED: PERC7.5T13 PO (13:34)
[2016-11-17] MEDS ORDERED: VITA1000 PO (13:34)
[2016-11-17] MEDS ORDERED: CETI10 PO (13:34)
[2016-11-17] MEDS ORDERED: BUPR100T4 PO (13:34)
[2016-11-17 13:42] LABS: BICARBONATE 24.5 MEQ/L (21.0-32.0); POTASSIUM 3.9 MEQ/L (3.5-5.1)
--- NOTE | 2016-11-17 13:56 | RADRPT ---
EXAM DATE/TIME: 11/17/2016 13:13 [facility] COMPARISON: No previous studies available for comparison. INDICATIONS : Short of breath MEDICAL HISTORY : None. SURGICAL HISTORY : Cholecystectomy. ENCOUNTER: Initial ACUITY: 2 days PAIN SCORE: 0/10 LOCATION: chest FINDINGS: PA and lateral views of the chest demonstrate subsegmental basilar airspace disease. No significant e ffusion. Heart size upper limits normal. No pneumothorax CONCLUSION: Subsegmental basilar airspace disease. This may represent atelectasis and crowding of the bronchovasc ular structures although small pneumonic infiltrate cannot be excluded. Alden Manuel MD on November 17, 2016 at 13:53 Board Certified Radiologist. This report was verified electronically.
--- NOTE | 2016-11-17 14:03 | RADRPT ---
EXAM DATE/TIME: 11/17/2016 13:15 [facility] COMPARISON: No previous studies available for comparison. INDICATIONS : Right arm pain and redness, area of recent IV site. MEDICAL HISTORY : Asthma. SURGICAL HISTORY : Cholecystectomy. ENCOUNTER: Initial ACUITY: 3 days PAIN SCORE: 4/10 LOCATION: Right arm. FINDINGS: The examination is positive for nonocclusive deep venous thrombosis in the right proximal brachial ve in and occlusive thrombus in the mid and distal right brachial vein. There is also occlusive thrombus in the cephalic vein of the distal arm to the mid forearm. Subclavian, axillary and basilic veins ar e patent. Internal jugular vein patent. CONCLUSION: 1. Positive for occlusive or nonocclusive deep venous thrombosis in the right upper extremity as abov e. Alden Manuel MD on November 17, 2016 at 14:01 Board Certified Radiologist. This report was verified electronically.
--- NOTE | 2016-11-17 16:10 | RADRPT ---
EXAM DATE/TIME: 11/17/2016 15:35 [facility] COMPARISON: No previous studies available for comparison. INDICATIONS : Patient had cholecystectomy 2 days ago, now dyspnea IV CONTRAST: 50 cc Omnipaque 350 (iohexol) IV RADIATION DOSE: 16.52 CTDIvol (mGy) MEDICAL HISTORY : None SURGICAL HISTORY : None. ENCOUNTER: Initial ACUITY: 1 day PAIN SCALE: 6/10 LOCATION: right arm TECHNIQUE: Volumetric scanning of the chest was performed using a pulmonary embolism protocol MIP images were re constructed. Using automated exposure control and adjustment of the mA and/or kV according to patien t size, radiation dose was kept as low as reasonably achievable to obtain optimal diagnostic quality images. DICOM format image data is available electronically for review and comparison. Follow-up recommendations for detected pulmonary nodules are based at a minimum on nodule size and pa tient risk factors according to Fleischner Society Guidelines. FINDINGS: PULMONARY ARTERIES: No filling defects are seen in the pulmonary arteries through the segmental level. LUNGS: There is no consolidation or pneumothorax . No concerning pulmonary nodule is visualized. Bibasilar patchy densities. PLEURAE: There is no pleural thickening or pleural effusion on the left. Tiny right pleural effusion. MEDIASTINUM: There is good visualization of the great vessels of the middle mediastinum. No evidence of mediastin al or hilar adenopathy/mass. MUSCULOSKELETAL: Within normal limits for patient age. MISCELLANEOUS: The visualized upper abdominal organs demonstrate no acute abnormality. CONCLUSION: 1. Bibasilar patchy densities. 2. Tiny right pleural effusion. 3. No evidence for pulmonary embolism. Daniel Hernandez MD on November 17, 2016 at 16:07 Board Certified Radiologist. This report was verified electronically.
[2016-11-17] MEDS ORDERED: APIXABAN 5 MG TABLET PO ONE (16:15)
[2016-11-17] MEDS ORDERED: APIX5TAB PO (16:28)
[2016-11-17] MEDS ORDERED: ENOXAPARIN SODIUM 100 MG/ML SYRINGE SQ ONE (16:30)
[2016-11-17 17:01] VITALS: BP 128/62; PULSE 88; RESP 16; O2SAT 96
== END 2016-11-17 17:02 | disposition home or self-care (01) ==
LOC: NEPD 11:24
DX: I82.621 Acute embolism and thrombosis of deep veins of right upper extremity (principal); R06.02 Shortness of breath; K59.00 Constipation, unspecified; M79.1 Myalgia; J45.909 Unspecified asthma, uncomplicated; Z79.899 Other long term (current) drug therapy; Z88.0 Allergy status to penicillin
CPT/HCPCS: 71020; 71275; 80048; 84703; 85025; 85379; 85610; 85730; 93971; 94150; 96372; 99285; J1650; Q9967

== ENCOUNTER 2016-11-26 11:21 | Emergency (ER) | payer OTHER ==
[~2016-11-26] VITALS: Ht 162.6 cm; Wt 95.0 kg
[~2016-11-26 11:21] MED LIST changes: +APIX5TAB PO; -BIRTH CONTROL PO; +BUPR100T4 PO; +CETI10 PO; +FLUO10TA PO; +ORSYTAB PO; +PERC7.5T13 PO; +VITA1000 PO; +VITA100021 SL
[2016-11-26 11:23] VITALS: BP 152/86; PULSE 85; RESP 16; TEMP 98.5; O2SAT 96
--- NOTE | 2016-11-26 11:32 | PD ---
Physical Exam Date Seen by Provider: Nov 26, 2016 Time Seen by Provider: 11:28 Data Data Last Documented VS Vital Signs Date Time Temp Pulse Resp B/P (MAP) Pulse Ox O2 Delivery O2 Flow Rate FiO2 11/26/16 11:23 98.5 85 16 152/86 (108) 96 MDM Supervised Visit with JOSE: No Narrative Course 26 Yo F with complaint of right shoulder pain, worsened by deep breathing. Onset gradual a few days ago. Seen in the ED after having lap ventura with Dr. Rendon 2 weeks ago, diagnosed with PE. On Eliquis x 9 days. Vitals reviewed. Patient seen in triage, awaiting bed placement. Lyndsey Main Nov 26, 2016 11:32
[2016-11-26 11:56] VITALS: O2SAT 98
[2016-11-26] MEDS ORDERED: SODIUM CHLORIDE 0.9% FLUSH 10 ML FLUSH IVF PRN (12:00)
[2016-11-26 12:12] LABS: AUTOMATED NEUTROPHIL # 5.2 TH/MM3 (1.8-7.7); BASOPHIL # 0.1 TH/MM3 (0-0.2); BASOPHIL % 0.7 % (0.0-2.0); EOSINOPHIL # 0.5 TH/MM3 (0-0.4); HEMATOCRIT 38.8 % (35.0-46.0); HEMO FLAGS DIFF FINAL; LYMPH % 32.8 % (9.0-44.0); LYMPHOCYTE # 3.2 TH/MM3 (1.0-4.8); MEAN CORPUSCULAR HEMOGLOBIN 27.6 PG (27.0-34.0); MEAN CORPUSCULAR HGB CONC 34.5 % (32.0-36.0); MONO % 7.7 % (0.0-8.0); NEUT % 53.8 % (16.0-70.0); PLATELET COUNT 384 TH/MM3 (150-450); RED BLOOD COUNT 4.85 MIL/MM3 (4.00-5.30); RED CELL DISTRIBUTION WIDTH 13.3 % (11.6-17.2); WHITE BLOOD COUNT 9.6 TH/MM3 (4.0-11.0)
--- NOTE | 2016-11-26 12:26 | PD ---
HPI Chief Complaint: Respiratory Symptoms Time Seen by Provider: 11:45 Travel History International Travel<30 days: No Contact w/Intl Traveler<30days: No Traveled to known affect area: No History of Present Illness HPI 26-year-old female who had laparoscopic cholecystectomy on 11/13/16, return to the emergency department on 11/17/16 for right upper extremity pain and was found to have a DVT which was thought to be secondary to the IV that was placed in that arm, started on a liquids, here for evaluation of right shoulder pain. The patient reports sharp right shoulder pains that is worse with inspiration and movement. She denies dyspnea, however states it is difficult to take a deep breath because of the pain. No fevers or chills. No cough or hemoptysis. No abdominal pain. No trauma. PFSH Past Medical History Hx Anticoagulant Therapy: Yes (elloquis) Asthma: Yes Diminished Hearing: No Respiratory: Yes Immunizations Current: Yes ?: Not : 0 Para: 0 Miscarriage: 0 : 0 Past Surgical History Cholecystectomy: Yes Oral Surgery: Yes (DENTAL) Other Surgery: No Social History Alcohol Use: Yes (occ ) Tobacco Use: No Substance Use: No Allergies-Medications (Allergen,Severity, Reaction): Coded Allergies: Penicillins (Verified Allergy, Intermediate, N/V, 11/26/16) Reported Meds & Prescriptions Reported Meds & Active Scripts Active Eliquis (Apixaban) 5 Mg Tab 10 Mg PO BID Eliquis (Apixaban) 5 Mg Tab 5 Mg PO BID Reported Percocet (Oxycodone-Acetaminophen) 7.5-325 mg Tab 1 Tab PO Q4H PRN Orsythia (Levonorgestrel-Ethinyl Estradiol) 0.1-20 mg-mcg Tab 1 Tab PO DAILY Bupropion HCl 100 Mg Tab 150 Mg PO TID Fluoxetine (Fluoxetine HCl) 10 Mg Tab 10 Mg PO DAILY Cetirizine (Cetirizine HCl) 10 Mg Tab 10 Mg PO DAILY Vitamin B-12 (Cyanocobalamin) 1,000 Mcg Subl 1,000 Mcg SL DAILY Vitamin D-1000 (Cholecalciferol) 1,000 Unit Tab 1,000 Units PO DAILY Montelukast (Montelukast Sodium) 10 Mg Tab 10 Mg PO HS Review of Systems Except as stated in HPI: all other systems reviewed are Neg Physical Exam Narrative GENERAL: Well-developed, well-nourished, comfortable, no apparent distress. SKIN: Focused skin assessment warm/dry. HEAD: Atraumatic. Normocephalic. EYES: Pupils equal and round. No scleral icterus. No injection or drainage. ENT: Mucous membranes pink and moist. NECK: Trachea midline. No JVD. CARDIOVASCULAR: Regular rate and rhythm. No murmur appreciated. RESPIRATORY: No accessory muscle use. Clear to auscultation. Breath sounds equal bilaterally. GASTROINTESTINAL: Abdomen soft, non-tender, nondistended. MUSCULOSKELETAL: No obvious deformities. No clubbing. No cyanosis. No edema. Right upper extremity is mildly tender. Right shoulder is mildly tender. There is no warmth or erythema. All compartments in the right upper extremity are supple. NEUROLOGICAL: Awake and alert. No obvious cranial nerve deficits. Motor grossly within normal limits. Normal speech. PSYCHIATRIC: Appropriate mood and affect; insight and judgment normal. Data Data Last Documented VS Vital Signs Date Time Temp Pulse Resp B/P (MAP) Pulse Ox O2 Delivery O2 Flow Rate FiO2 11/26/16 11:56 97 Room Air 11/26/16 11:56 11/26/16 11:36 82 17 11/26/16 11:23 98.5 Orders Orders Complete Blood Count With Diff (11/26/16 11:50) Comprehensive Metabolic Panel (11/26/16 11:50) Act Partial Throm Time (Ptt) (11/26/16 11:50) Prothrombin Time / Inr (Pt) (11/26/16 11:50) Ckmb (Isoenzyme) Profile (11/26/16 11:50) Troponin I (11/26/16 11:50) Iv Access Insert/Monitor (11/26/16 11:50) Electrocardiogram (11/26/16 11:50) Ecg Monitoring (11/26/16 11:50) Oximetry (11/26/16 11:50) Oxygen Administration (11/26/16 11:50) Ct Pulmonary Angiogram (11/26/16 11:50) Sodium Chloride 0.9% Flush (Ns Flush) (11/26/16 12:00) Iohexol 350 Inj (Omnipaque 350 Inj) (11/26/16 14:16) Labs Laboratory Tests Test 11/26/16 11:55 11/26/16 12:30 White Blood Count 9.6 TH/MM3 Red Blood Count 4.85 MIL/MM3 Hemoglobin 13.4 GM/DL Hematocrit 38.8 % Mean Corpuscular Volume 80.0 FL Mean Corpuscular Hemoglobin 27.6 PG Mean Corpuscular Hemoglobin Concent 34.5 % Red Cell Distribution Width 13.3 % Platelet Count 384 TH/MM3 Mean Platelet Volume 8.1 FL Neutrophils (%) (Auto) 53.8 % Lymphocytes (%) (Auto) 32.8 % Monocytes (%) (Auto) 7.7 % Eosinophils (%) (Auto) 5.0 % Basophils (%) (Auto) 0.7 % Neutrophils # (Auto) 5.2 TH/MM3 Lymphocytes # (Auto) 3.2 TH/MM3 Monocytes # (Auto) 0.7 TH/MM3 Eosinophils # (Auto) 0.5 TH/MM3 Basophils # (Auto) 0.1 TH/MM3 CBC Comment DIFF FINAL Differential Comment Prothrombin Time 10.4 SEC Prothromb Time International Ratio 0.9 RATIO Activated Partial Thromboplast Time 28.4 SEC Blood Urea Nitrogen 12 MG/DL Creatinine 0.69 MG/DL Random Glucose 79 MG/DL Total Protein 7.9 GM/DL Albumin 3.3 GM/DL Calcium Level 8.6 MG/DL Alkaline Phosphatase 71 U/L Aspartate Amino Transf (AST/SGOT) 33 U/L Alanine Aminotransferase (ALT/SGPT) 79 U/L Total Bilirubin 0.3 MG/DL Sodium Level 137 MEQ/L Potassium Level 4.1 MEQ/L Chloride Level 105 MEQ/L Carbon Dioxide Level 24.3 MEQ/L Anion Gap 8 MEQ/L Estimat Glomerular Filtration Rate 101 ML/MIN Total Creatine Kinase 20 U/L Troponin I LESS THAN 0.02 NG/ML [facility] Medical Decision Making Medical Screen Exam Complete: Yes Emergency Medical Condition: Yes Medical Record Reviewed: Yes Differential Diagnosis Referred pain secondary to DVT, PE Narrative Course Vital signs show heart rate 85, blood pressure 152/86, pulse ox 96% on room air , oral temp of 98.5F. CBC shows WBC 9.6, hemoglobin 13.4, hematocrit 38.8, platelets 384. CMP is unremarkable. Cardiac enzymes are negative. Coags are normal. CT pulmonary angiogram: CONCLUSION: 1. No CT evidence for pulmonary artery embolism to the subsegmental level. 2. Interval significant improvement in bilateral lower lobe air space consolidation with only minimal residual consolidation. 3. Interval resolution of small right-sided pleural effusion. 4. Findings consistent with hepatic steatosis. Patient was made aware of all findings. She is resting comfortably. Her right upper extremity compartments are supple. There is some tenderness. No signs of infection. Her right shoulder pain is likely referred pain from her right upper extremity DVT. Her abdominal exam is benign. She has a few Percocet left at home, but is requesting a few more if she has continued pain. At this point she is stable for discharge home with outpatient follow-up with her primary care physician this week. She was informed on when to return to the emergency department. She verbalizes understanding and agreement with plan. Diagnosis Primary Impression: Right shoulder pain Qualified Codes: M25.511 - Pain in right shoulder Referrals: Primary Care Physician 1 week Additional Instructions: Follow-up with your primary care physician this week. Continue Eliquis as prescribed. Return to the emergency department for worsening symptoms or any other concerns as discussed. Scripts Oxycodone-Acetaminophen (Percocet) 5-325 mg Tab 1 TAB PO Q6H Y for PAIN, #10 TAB 0 Refills Prov: Colby Agarwal MD 11/26/16 Disposition: DISCHARGE HOME Condition: Stable Colby Agarwal MD Nov 26, 2016 12:26
[2016-11-26 13:08] LABS: APTT (PATIENT) 28.4 SEC (24.3-30.1); INTERNATIONAL NORMALIZED RATIO 0.9 RATIO; PROTHROMBIN TIME - PATIENT 10.4 SEC (9.8-11.6)
[2016-11-26 13:24] LABS: ALT (GPT) 79 U/L (10-53); ANION GAP 8 MEQ/L (5-15); AST (GOT) 33 U/L (15-37); BICARBONATE 24.3 MEQ/L (21.0-32.0); BLOOD UREA NITROGEN 12 MG/DL (7-18); CHLORIDE 105 MEQ/L (98-107); GLOMERULAR FILTRATION RATE 101 ML/MIN (>89); POTASSIUM 4.1 MEQ/L (3.5-5.1); SODIUM (NA) 137 MEQ/L (136-145)
[2016-11-26 13:28] LABS: ALKALINE PHOSPHATASE 71 U/L (45-117); TOTAL BILIRUBIN ADULT 0.3 MG/DL (0.2-1.0)
[2016-11-26 13:30] LABS: CREATINE KINASE 20 U/L (26-192)
--- NOTE | 2016-11-26 13:53 | EKG ---
Date Performed: 11/26/2016 Time Performed: 12:02:51 PTAGE: 26 years EKG: Sinus rhythm POSSIBLE RIGHT VENTRICULAR CONDUCTION DELAY BORDERLINE ECG NO PREVIOUS TRACING DOCTOR: Petros Abebe Interpretating Date/Time 11/26/2016 13:53:07
[2016-11-26] MEDS ORDERED: IOHEXOL 350 MG/ML 10 ML VIAL (for RAD DIAG) IV PUSH ONE (14:16)
--- NOTE | 2016-11-26 14:26 | RADRPT ---
EXAM DATE/TIME: 11/26/2016 14:06 [place] COMPARISON: CT PULMONARY ANGIOGRAM, November 17, 2016, 15:35. INDICATIONS : Right shoulder pain today. IV CONTRAST: 70 cc Omnipaque 350 (iohexol) IV RADIATION DOSE: 10.25 CTDIvol (mGy) MEDICAL HISTORY : deep vein thrombosis SURGICAL HISTORY : Cholecystectomy. ENCOUNTER: Initial ACUITY: 1 day PAIN SCALE: 6/10 LOCATION: Right shoulder TECHNIQUE: Volumetric scanning of the chest was performed using a pulmonary embolism protocol MIP images were re constructed. Using automated exposure control and adjustment of the mA and/or kV according to patien t size, radiation dose was kept as low as reasonably achievable to obtain optimal diagnostic quality images. DICOM format image data is available electronically for review and comparison. Follow-up recommendations for detected pulmonary nodules are based at a minimum on nodule size and pa tient risk factors according to Fleischner Society Guidelines. FINDINGS: PULMONARY ARTERIES: No filling defects are seen in the pulmonary arteries through the segmental level. LUNGS: Minimal residual right lower lobe airspace consolidation with slightly more focal wedge-shaped consol idation in the superior segment. Minimal left basilar linear parenchymal opacities. Overall, the find ings are significantly improved from recent prior exam. PLEURAE: Interval resolution of very small right-sided pleural effusion. No significant effusion or pneumothor ax. MEDIASTINUM: There is good visualization of the great vessels of the middle mediastinum. No evidence of mediastin al or hilar adenopathy/mass. MUSCULOSKELETAL: Within normal limits for patient age. MISCELLANEOUS: Visualized upper abdomen demonstrates diffusely decreased hepatic density similar to prior exam. CONCLUSION: 1. No CT evidence for pulmonary artery embolism to the subsegmental level. 2. Interval significant improvement in bilateral lower lobe air space consolidation with only minimal residual consolidation. 3. Interval resolution of small right-sided pleural effusion. 4. Findings consistent with hepatic steatosis. Juan David Carty MD on November 26, 2016 at 14:21 Board Certified Radiologist. This report was verified electronically.
[2016-11-26] MEDS ORDERED: PERC5TAB12 PO (14:57)
[2016-11-26 15:21] VITALS: BP 117/57
== END 2016-11-26 15:32 | disposition home or self-care (01) ==
LOC: NEPE 11:21
DX: M25.511 Pain in right shoulder (principal); K76.0 Fatty (change of) liver, not elsewhere classified; J90 Pleural effusion, not elsewhere classified; J45.909 Unspecified asthma, uncomplicated; Z88.0 Allergy status to penicillin; Z79.899 Other long term (current) drug therapy; Z86.718 Personal history of other venous thrombosis and embolism
CPT/HCPCS: 71275; 80053; 82550; 84484; 85025; 85610; 85730; 93005; 99285; Q9967